=== PATIENT | female | born 1940 | race Caucasian/White ===

== ENCOUNTER 2020-06-27 08:00 | Outpatient (CLI) | payer MEDICARE | END 2020-06-27 23:59 | disposition home or self-care (01) | LOC: LAB.R 08:00 | PROVIDERS: ATTEND Physician Assistant Medical | DX: R30.0 Dysuria (principal) | CPT/HCPCS: 87077; 87086; 87181 ==

== ENCOUNTER 2020-07-13 17:59 | Outpatient (CLI) | payer MEDICARE ==
[2020-07-13 20:30] LABS: BILIRUBIN,URINE NEGATIVE (NEGATIVE); GLUCOSE, URINE (UA) NEGATIVE (NEGATIVE); KETONES,URINE (UA) NEGATIVE (NEGATIVE); LEUKOCYTE ESTERASE, URINE NEGATIVE (NEGATIVE); NITRITE,URINE NEGATIVE (NEGATIVE); OCCULT BLOOD,URINE SMALL (NEGATIVE); PROTEIN,URINE NEGATIVE (NEGATIVE); UROBILINOGEN,URINE 0.2 (NORMAL) E.U./dL (NORMAL)
[2020-07-13 20:38] LABS: CLARITY,URINE HAZY (CLEAR)
[2020-07-13 20:55] LABS: SQUAMOUS EPITHELIAL CELL,UR MANY Squamous (<= Few)
[2020-07-13 20:56] LABS: BACTERIA,URINE None Seen /HPF (None Seen)
== END 2020-07-13 18:00 | disposition home or self-care (01) ==
LOC: LAB.S 17:59
PROVIDERS: ATTEND Urology Female Pelvic Medicine and Reconstructive Surgery
DX: N39.0 Urinary tract infection, site not specified (principal)
CPT/HCPCS: 81001; 87086

== ENCOUNTER 2020-07-15 10:56 | Outpatient (CLI) | payer MEDICARE ==
[2020-07-15 15:24] LABS: BILIRUBIN,URINE NEGATIVE (NEGATIVE); GLUCOSE, URINE (UA) NEGATIVE (NEGATIVE); KETONES,URINE (UA) NEGATIVE (NEGATIVE); LEUKOCYTE ESTERASE, URINE NEGATIVE (NEGATIVE); NITRITE,URINE NEGATIVE (NEGATIVE); OCCULT BLOOD,URINE NEGATIVE (NEGATIVE); PROTEIN,URINE NEGATIVE (NEGATIVE); UROBILINOGEN,URINE 0.2 (NORMAL) E.U./dL (NORMAL)
[2020-07-15 15:27] LABS: CLARITY,URINE CLEAR (CLEAR)
== END 2020-07-15 10:57 | disposition home or self-care (01) ==
LOC: LAB.S 10:56
PROVIDERS: ATTEND Urology Female Pelvic Medicine and Reconstructive Surgery
DX: N39.0 Urinary tract infection, site not specified (principal)
CPT/HCPCS: 81001; 81003; 87086

== ENCOUNTER 2020-08-30 19:44 | Outpatient (CLI) | payer MEDICARE | END 2020-08-30 19:45 | disposition short-term general hospital (02) | LOC: EMS 19:44 | PROVIDERS: ATTEND Surgery | DX: I10 Essential (primary) hypertension (principal); R07.89 Other chest pain | CPT/HCPCS: A0425; A0427 ==

== ENCOUNTER 2022-05-28 14:46 | Outpatient (CLI) | payer MEDICARE | END 2022-05-28 14:47 | disposition critical access hospital (66) | LOC: EMS 14:46 | DX: Z04.3 Encounter for examination and observation following other accident (principal); M54.9 Dorsalgia, unspecified; R42 Dizziness and giddiness; R11.0 Nausea; M79.602 Pain in left arm | CPT/HCPCS: A0425; A0427 ==